=== PATIENT | female | born 1960 | race Caucasian/White ===

== ENCOUNTER 2016-12-17 20:16 | Emergency (ER) | payer OTHER ==
[2016-12-17 20:22] VITALS: BP 136/70; PULSE 76; TEMP 97.6; BMI 23.6
--- NOTE | 2016-12-17 21:57 | PDOC ---
History of Present Illness - History of Present Illness Initial Comments: 12/17/16 22:04 The patient is a year 56 old female, with no significant past medical history, who presents to the emergency department with a part of her hearing aide lodged into her right ear today. She states she was taking out her hearing aide about 2 hours ago when the plastic earpiece disconnected from the rest of her hearing aid. She reports this happening once in the past. She denies any ear pain or additional hearing loss. She denies chest pain, shortness of breath, headache and dizziness. She denies fever, chills, nausea, vomit, diarrhea and constipation. She denies dysuria, frequency, urgency and hematuria. Allergies: NKDA PCP - Dr. Amada Snyder <Josette Bernardo - Last Filed: 12/17/16 22:04> <Claribel Carpio - Last Filed: 12/18/16 04:33> - General Chief Complaint: Foreign Body (FB) Stated Complaint: FB R EAR Time Seen by Provider: 12/17/16 20:25 Past History <Josette Bernardo - Last Filed: 12/17/16 22:04> - Past Medical History Thyroid Disease: Yes Other medical history: HEARING LOSS - Psycho/Social/Smoking Cessation Hx Anxiety: No Suicidal Ideation: No Smoking History: Unknown if ever smoked Have you smoked in the past 12 months: No Number of Cigarettes Smoked Daily: 0 Information on smoking cessation initiated: No Hx Alcohol Use: No Drug/Substance Use Hx: No Substance Use Type: None <Claribel Carpio - Last Filed: 12/18/16 04:33> - Past Medical History Allergies/Adverse Reactions: Allergies Allergy/AdvReac Type Severity Reaction Status Date / Time No Known Allergies Allergy Unverified 12/17/16 20:22 Home Medications: Ambulatory Orders Levothyroxine Sodium [Synthroid] 88 mcg PO DAILY 12/17/16 Review of Systems - Review of Systems Able to Perform ROS?: Yes Comments:: 12/17/16 22:04 CONSTITUTIONAL: Absent: fever, no chills, no fatigue EYES: Absent: visual changes ENT: (+) hearing aid lodged in right ear. Absent: ear pain, no sore throat CARDIOVASCULAR: Absent: chest pain, no palpitations RESPIRATORY: Absent: cough, no SOB NEURO: Absent: headache <Morenzi,Josette - Last Filed: 12/17/16 22:04> *Physical Exam - Vital Signs Last Vital Signs Temp Pulse Resp BP Pulse Ox 97.6 F 76 14 136/70 100 12/17/16 20:19 12/17/16 20:19 12/17/16 20:19 12/17/16 20:19 12/17/16 20:19 - Physical Exam Comments: 12/17/16 22:04 GENERAL: The patient is awake, alert, and fully oriented, in no acute distress. HEAD: Normal with no signs of trauma. EYES: Pupils equal, round and reactive to light, extraocular movements intact, sclera anicteric, conjunctiva clear. EARS: (+) cylindrical translucent, plastic foreign body in external proximal auditory canal. TM and canal without signs of trauma. no blood or discharge noted in canal. EXTREMITIES: Normal range of motion, no edema. NEUROLOGICAL: Normal speech, normal gait. PSYCH: Normal mood, normal affect. SKIN: Warm, Dry, normal turgor, no rashes or lesions noted. <Josette Bernardo - Last Filed: 12/17/16 22:04> - Vital Signs Last Vital Signs Temp Pulse Resp BP Pulse Ox 97.6 F 76 14 136/70 100 12/17/16 20:19 12/17/16 20:19 12/17/16 20:19 12/17/16 20:19 12/17/16 20:19 <Claribel Carpio - Last Filed: 12/18/16 04:33> Medical Decision Making - Medical Decision Making Documentation has been prepared under my direction and personally reviewed by me in its entirety. I attest that this documented accurately reflects all work, treatment, procedures and medical decision making performed by me. As noted above, this 56-year-old woman presents with foreign body in the right ear: Portion of her hearing aid was retained in the ear canal when she was removing the device just prior to presentation here. Patient has not noted any discharge or bleeding from the ear. Exam is as noted above: Easily visualized plastic component of the hearing aid seen in the external auditory canal. Under direct visualization with clear light source, hearing aide component grasped with fine forceps and removed from the auditory canal without difficulty. Examination of the auditory canal after removal of foreign body shows no evidence of trauma/edema. Tympanic membrane is intact without evidence of perforation. Patient tolerated procedure well. Since the foreign body was in place for a short period of time, no antibiotic otic suspension will be administered or prescribed. Patient should return to the ER or see her doctor if she notices pain or discharge in the ear. <Claribel Carpio - Last Filed: 12/18/16 04:33> *DC/Admit/Observation/Transfer - Attestations Scribe Attestion: 12/17/16 22:07 Documentation prepared by Josette Bernardo, acting as medical psychotherapist for Claribel Carpio MD <Josette Bernardo - Last Filed: 12/17/16 22:04> <Claribel Carpio - Last Filed: 12/18/16 04:33> Diagnosis at time of Disposition: Foreign body of ear, right Qualifiers: Encounter type: initial encounter Qualified Code(s): T16.1XXA - Foreign body in right ear, initial encounter - Discharge Dispostion Disposition: HOME Condition at time of disposition: Stable - Patient Instructions Printed Discharge Instructions: DI for Removal of Foreign Body From Ear Additional Instructions: return to ER or see your doctor if ear pain/discharge occurs
== END 2016-12-17 21:57 | disposition home or self-care (01) ==
LOC: FER 20:16
DX: T16.1XXA Foreign body in right ear, initial encounter (principal); X58.XXXA Exposure to other specified factors, initial encounter; Y93.89 Activity, other specified; H91.90 Unspecified hearing loss, unspecified ear
CPT/HCPCS: 99282-25

== ENCOUNTER 2017-08-17 23:20 | Emergency (ER) | payer OTHER ==
[2017-08-17 23:28] VITALS: BP 145/80; PULSE 64; TEMP 98.6; BMI 22.6
--- NOTE | 2017-08-17 23:32 | PDOC ---
History of Present Illness - General Chief Complaint: Foreign Body (FB) Stated Complaint: TIP OF HEARING AID STUCK IN LEFT EAR Time Seen by Provider: 08/17/17 23:22 - History of Present Illness Initial Comments: This 57-year-old woman with a history of hypothyroidism and hearing loss presents with foreign body in her left ear: Approximately half hour prior to presentation, portion of her hearing aid became stuck in the left ear canal. Patient states that she attempted to remove the hearing aid part but was unable to and inadvertently scratched part of her canal. No bleeding/discharge reported the patient has no other symptoms. Past History - Past Medical History Allergies/Adverse Reactions: Allergies Allergy/AdvReac Type Severity Reaction Status Date / Time No Known Allergies Allergy Verified 08/17/17 23:23 Home Medications: Ambulatory Orders Levothyroxine Sodium [Synthroid] 88 mcg PO DAILY 12/17/16 Thyroid Disease: Yes - Suicide/Smoking/Psychosocial Hx Smoking History: Former smoker Have you smoked in the past 12 months: No Number of Cigarettes Smoked Daily: 0 Information on smoking cessation initiated: No Hx Alcohol Use: No Drug/Substance Use Hx: No Substance Use Type: None Review of Systems - Review of Systems Able to Perform ROS?: Yes Comments:: 12 point review of systems is negative except for what is noted in the history of present illness *Physical Exam - Vital Signs Last Vital Signs Temp Pulse Resp BP Pulse Ox 98.6 F 64 16 145/80 99 08/17/17 23:24 08/17/17 23:24 08/17/17 23:24 08/17/17 23:24 08/17/17 23:24 - Physical Exam Comments: GENERAL: Adult female, alert and oriented 3 in no acute distress HEAD: Normal with no signs of trauma. EYES: PERRLA, EOMI, sclera anicteric, conjunctiva clear. ENT: Right ear normal; left earplastic/metallic foreign body seen in the superficial region of the external auditory canal No obvious contusion/abrasion/ bleeding/discharge seen NECK: Normal range of motion, supple without lymphadenopathy, JVD, or masses. Under direct otoscopic visualization, foreign body removed without difficulty using small alligator clamp. Close inspection of the auditory canal/tympanic membrane after removal of foreign body revealed a small abrasion of the floor of the auditory canal. No bleeding or discharge seen. Tympanic membrane appeared normal Medical Decision Making - Medical Decision Making Because of the presence of a small abrasion at the base of the auditory canal after removal of the hearing aid portion, Cortisporin suspension will be started to prevent otitis externa. 2 drops of the suspension placed in the left ear and patient will administer additional 2 drops at home. After this, 4 drops in the left ear should be administered 3 times a day for the next 5 days. Patient should return to the emergency room or see her doctor if she has any worsening pain/itching/discharge in the left ear. *DC/Admit/Observation/Transfer Diagnosis at time of Disposition: Foreign body in left ear Qualifiers: Encounter type: initial encounter Qualified Code(s): T16.2XXA - Foreign body in left ear, initial encounter - Discharge Dispostion Disposition: HOME Condition at time of disposition: Stable - Patient Instructions Printed Discharge Instructions: DI for Removal of Foreign Body From Ear Additional Instructions: Cortisporin otic suspension: 4 drops in left ear 3 times a day for 5 days Return to ER or see your doctor if you have pain in or discharge from left ear
[2017-08-17] MEDS ORDERED: NEOMYCIN/POLYMYXN/HC OTIC SUSPENSION 10 ML BOTTLE AS ONE (23:45)
[2017-08-17] MEDS ORDERED: NEOMYCIN/POLYMYXN/HC OTIC SUSPENSION 10 ML BOTTLE ONE (23:46)
== END 2017-08-18 00:10 | disposition home or self-care (01) ==
LOC: FER 23:20
DX: T16.2XXA Foreign body in left ear, initial encounter (principal); X58.XXXA Exposure to other specified factors, initial encounter; Y93.89 Activity, other specified; Y92.9 Unspecified place or not applicable
CPT/HCPCS: 99281-25